=== PATIENT | male | born 1980 | race Caucasian/White ===

== ENCOUNTER 2020-04-16 01:14 | Emergency (ER) | payer SELFPAY ==
[2020-04-16 01:15] VITALS: BP 121/83; PULSE 86; RESP 20; TEMP 36.5; O2SAT 99
--- NOTE | 2020-04-16 01:59 | ED.GENADULT ---
HPI - General Adult General Chief complaint: Unspecified Stated complaint: toothache Time Seen by Provider: 04/16/20 01:42 History of Present Illness HPI narrative: Patient is a 40-year-old male who presents the ER with dental pain. Left lower jaw. No facial swelling. No difficulty breathing or swallowing. Tried lancing abscess to the base of the tooth on his own without success. Has not been on antibiotics. Does not have a dentist. Related Data Allergies Allergy/AdvReac Type Severity Reaction Status Date / Time No Known Allergies Allergy Mild Verified 04/16/20 01:44 Review of Systems Constitutional: Constitutional: Denies chills and Denies fever(s) ENT: Denies sore throat Comments: Dental pain PMFSH Past Medical History Medical History (Updated 04/16/20 @ 02:07 by Kameron Jerome MD) Healthy adult Surgical History Surgical History (Updated 04/16/20 @ 02:02 by Kameron Jerome MD) No history of previous surgery Social History Social History (Updated 04/16/20 @ 02:02 by Kameron Jerome MD) Tobacco type: cigarettes Gender identity (if verbalized by the patient): Male Exam Narrative: Exam Narrative: GENERAL: Well-appearing, well-nourished, and in no acute distress. HEAD: Normocephalic, atraumatic. ENT: Mucous membranes moist. Abscess at base of tooth #19. No facial swelling. NEURO: Alert and oriented x3. PSYCH: Normal mood and affect. Course Course Emergency Course: Abscess drained. Discharge home. First dose antibiotics here. Vital Signs Vital signs: Vital Signs Temperature 97.7 F 04/16/20 01:15 Pulse Rate 86 04/16/20 01:15 Respiratory Rate 04/16/20 01:15 Blood Pressure 121/83 04/16/20 01:15 Pulse Oximetry 99 04/16/20 01:15 Temperature 97.7 F 04/16/20 01:15 Pulse Rate 86 04/16/20 01:15 Respiratory Rate 04/16/20 01:15 Blood Pressure 121/83 04/16/20 01:15 Pulse Oximetry 99 04/16/20 01:15 Procedures Abscess I/D oral: Date of Incision: 04/16/20 Time of Incision: 01:59 Local Anesthetic: none (cetacaine) Technique: needle aspiration Irrigation: No Packing used?: none I&D Results: Pus Medical Decision Making Vital Signs Vital Signs: Vital Signs Temperature 97.7 F 04/16/20 01:15 Pulse Rate 86 04/16/20 01:15 Respiratory Rate 04/16/20 01:15 Blood Pressure 121/83 04/16/20 01:15 Pulse Oximetry 99 04/16/20 01:15 Temperature 97.7 F 04/16/20 01:15 Pulse Rate 86 04/16/20 01:15 Respiratory Rate 04/16/20 01:15 Blood Pressure 121/83 04/16/20 01:15 Pulse Oximetry 99 04/16/20 01:15 Discharge Plan Discharge Clinical Impression: Abscess, dental Patient Disposition: Home, Self-Care Condition: Stable Instructions: Dental Abscess (ED) Additional Instructions: Return to the ER if you have fever over 100.4 ?F, you cannot keep down food or water, you have chest pain or shortness of breath, you have additional concerns. Prescriptions: New amoxicillin-pot clavulanate [Augmentin] 875-125 mg tablet 1 tablet PO Q12H Qty: 20 RF: 0 hydrocodone-acetaminophen 5-325 mg tablet 1 tablet PO Q6H PRN (Reason: pain) Qty: 10 RF: 0 Follow-up/Referrals: Cody Enamorado DMD [Physician] - Cal Bowden DMD [Physician] - Marcin Jorgensen DMD [Physician] -
[2020-04-16] MEDS: AMOXICILLIN/CLAVULANATE K 875-125 MG TAB 1 TABLET PO (02:18)
[2020-04-16 02:55] VITALS: BP 130/74; PULSE 77; RESP 17; O2SAT 92
== END 2020-04-16 02:55 | disposition home or self-care (01) ==
PROVIDERS: Emergency Provider Emergency Medicine
DX: K04.7 Periapical abscess without sinus (principal)
CPT/HCPCS: 41800; 99283; A9270

== ENCOUNTER 2025-01-04 10:42 | Emergency (ER) | payer SELFPAY ==
--- OUTSIDE RECORDS SUMMARY | 2025-01-04 11:17 | XMS_ITS | Data Portability ---
Author Organization [place] - [facility] [place] [facility], Main Office Address [address] [place] [address] Assessment Encounter Date Assessment Date Assessment LastModified by Organization Details LastModified Time 08/24/2024 08/24/2024 This note is dictated and transcribed by [employer]. Supervisor Contingents variances may occur. Despite proofreading, typographical errors may occur. Occasional wrong-word or 'froao-o-egcd' substitutions may have occurred due to the inherent limitations of voice recording. Read the chart carefully and recognize, using context, where substitutions have occurred. Not available 08/24/2024 14:38:41 09/07/2024 09/07/2024 This note is dictated and transcribed by [employer]. Supervisor Contingents variances may occur. Despite proofreading, typographical errors may occur. Occasional wrong-word or 'qmtfv-y-xlhn' substitutions may have occurred due to the inherent limitations of voice recording. Read the chart carefully and recognize, using context, where substitutions have occurred. Not available 09/07/2024 13:48:38 09/28/2024 09/28/2024 This note is dictated and transcribed by [employer]. Supervisor Contingents variances may occur. Despite proofreading, typographical errors may occur. Occasional wrong-word or 'oenrp-z-pvxz' substitutions may have occurred due to the inherent limitations of voice recording. Read the chart carefully and recognize, using context, where substitutions have occurred. Not available 09/28/2024 13:00:30 11/01/2024 11/01/2024 This note is dictated and transcribed by [employer]. Supervisor Contingents variances may occur. Despite proofreading, typographical errors may occur. Occasional wrong-word or 'tdces-d-xmzd' substitutions may have occurred due to the inherent limitations of voice recording. Read the chart carefully and recognize, using context, where substitutions have occurred. Not available 11/01/2024 13:06:00 Plan of Treatment Reminders Order Date Submit Date Provider Last Modified By Organization Details Last Modified Time Details Appointments Establish ed Patient 15 2024 02:00P Yeni Valles DPM Not available Not available Not available Any 15 2024 09:15A M Ines Whelan INDUCTION MACHINE SETTER Not available Not available Not available Lab CBC w/ auto diff [address] (Lab), [address] [place], [address], 09/30/2024 10:44:22 CMP, serum or plasma [address] (Lab), [address] [place], [address], 09/30/2024 10:44:22 lipid panel, serum 2023 [facility] (Lab), [address] [place], [address], 10/07/2024 07:36:37 TSH + free T4, serum [address] (Lab), [address] [place], [address], 09/30/2024 10:44:23 HbA1c (hemoglob in A1c), blood 2023 [facility] (Lab), [address] [place], [address], 10/07/2024 07:36:37 hepatitis C virus Ab, serum 2023 [facility] (Lab), [address] [place], [address], 10/07/2024 07:36:37 Referral None recorded. Procedures None recorded. Surgeries None recorded. Imaging XR, foot, 3 or more view 2023 024 [email or web address] [facility] [place], [address], [address], [place], [address], 08/24/2024 14:43:52 XR, foot, 3 or more view 2023 024 [email or web address] [facility] [place], [address], [address], [place], [address], 09/07/2024 13:49:53 XR, foot, 3 or more view 2023 024 [email or web address] [place], [address], [address], [place], [address], 09/28/2024 13:03:56 XR, foot, 3 or more view 2023 024 [email or web address] [facility] [place], [facility] [facility] [address], [place], [address], 11/01/2024 13:06:38 Medication Orders None recorded. Patient TargetsNo targets recorded. Patient Instructions Encounter Date Encounter Id Patient Instructions Last Modified By Organization Details Last Modified Time 09/30/2024 [id number] Follow up in 4 months Obtain labs Tests: Referral: Recommend: Tetanus vaccine Not available 09/30/2024 10:39:33 Reason for Referral None Reported. Results Created Date Observation Date Name Description Value Unit Range Abnormal Flag Note LastModifiedBy Organization Detail LastModifiedTime 08/24/20 XR, foot, 3 or more view No observ ation record ed. [email or web address] [facility] [place] [address], [address], [place], [address], 08/24/2024 14:43:50 09/07/20 24 XR, foot, 3 or more view No observ ation record ed. [email or web address] [facility] [place] [address] [facility], [address], [place], [address], 09/07/2024 13:49:52 09/15/20 CT, abdom en + pelvi s, w/o contr ast No observ ation record ed. [email or web address] Not Available 2023 15:40:25 09/28/20 24 XR, foot, 3 or more view No observ ation record ed. [email or web address] [facility] [place] [address] [facility], [address], [place], [address], 09/28/2024 13:03:56 11/01/20 XR, foot, 3 or more view No observ ation record ed. [email or web address] [facility] [place] [address], [place], [address], 11/01/2024 13:06:36 Result Notes None recorded. Problems Name Problem SNOMED Code Status Onset Date Resolution Date Notes Provider Name and Address Organization Details Recorded Time Pain in right foot 6027452471050 07 Active 2023 Umang Valles DPM [address], [address], [place], [address], [employer] 4 15:11:21 Closed fracture of metatarsal bone 07719313 Active 2023 Ines Whelan APRN [address], [address], [place], [address], [employer] 4 16:48:03 Postoperati ve care Active 2023 Umang Valles DPM [address], [address], [place], [address], [employer] 4 14:39:53 Diabetes mellitus 31952620 Active 2023 Inesanila YoungBOAZ renee [address], [address], [place], [address], [employer] 4 10:34:02 Benign prostatic hyperplasia 784386801 Active 2023 Ines Cleopatra INDUCTION MACHINE SETTER [address], [address], [place], [address], [employer] 4 10:35:13 Mixed hyperlipide magdy 589916335 Active 2023 Ines BOAZ Whelan [address], [address], [place], [address], [employer] 15:38:06 Osteopenia due to disuse 491006392 Active 2023 Umang Valles DPM [address], [address], [place], [address], [employer] 13:07:05 Notes:Some problems listed i n Documents: #[id number], #[id number] could not be added to this patient's chart. Please review these documents and add these problems to the patient's chart manually as needed. Problem Notes None recorded. Procedures Surgical History Date Name Laterality Status Provider Name and Address Organization Details Recorded Time 08/24/20 24 Foot/Ankle Cast completed Umang Valles DPM [address], [address], [place], [address], [employer] 08/24/2024 14:38:31 08/05/20 24 Foot/Ankle Cast completed Umang Valles DPM [address], [address], [place], [address], [employer] 08/25/2024 13:22:04 Foot Surgery completed Tamiko Santos MA [employer] 09/30/2024 10:27:17 ultrasonic fragmentation of urinary stone through percutaneous nephrostomy completed Tamiko Santos MA [employer] [facility] 09/30/2024 10:27:31 Imaging Results Imaging Date Name Status LastModified by [facility] Details LastModified Time 08/24/2024 XR, foot, 3 or more view completed [email or web address] [place] [address] [facility] [place] [address], [address], [place], [address], 08/24/2024 14:43:50 09/07/2024 XR, foot, 3 or more view completed [email or web address] [facility] [place] [address], [address], [place], [address], 09/07/2024 13:49:52 09/15/2024 CT, abdomen + pelvis, w/o contrast completed Information not available 09/15/2024 15:40:25 09/28/2024 XR, foot, 3 or more view completed [email or web address] [facility] [place] [address] [facility], [address], [place], [address], 09/28/2024 13:03:56 11/01/2024 XR, foot, 3 or more view completed [address] [facility] [place] [address], [place], [address], 11/01/2024 13:06:36 Procedure Notes None recorded. Medical Equipment None Reported. Allergies No known drug allergies Medications Name Sig Start Date Stop Date Status Note LastModified by Organization Details LastModified Time metformin 500 mg tablet TAKE 1 TABLET BY MOUTH TWICE DAILY 11/01 completed Not Available Not Available Not Available atorvastatin 10 mg tablet Take 1 tablet every day by oral route as directed . 11/01 completed Not Available Not Available Not Available hydrocodone 5 mg-acetamino phen 325 mg tablet 09/30 completed Not Available Not Available Not Available Pyridium 200 mg tablet Take 1 tablet 4 times a day by oral route. 08/06 completed Not Available Not Available Not Available hydrocodone 10 mg-acetamino phen 325 mg tablet TK 1 T PO Q 6 H PRN 08/05 completed Not Available Not Available Not Available tramadol 50 mg tablet Take 1 tablet every 6 hours by oral route. 08/05 completed Not Available Not Available Not Available oxycodone-ac etaminophen 5 mg-325 mg tablet TAKE 1 TABLET BY MOUTH EVERY 6 HOURS NEEDED 09/30 completed Not Available Not Available Not Available hydrocodone 7.5 mg-acetamino phen 325 mg tablet TK 1 T PO Q 6 TO 8 H PRN P 08/05 completed Not Available Not Available Not Available Proscar 5 mg tablet Take 1 tablet every day by oral route. 11/01 completed Not Available Not Available Not Available Levaquin 500 mg tablet Take 1 tablet every 24 hours by oral route. 08/05 completed Not Available Not Available Not Available cefdinir 300 mg capsule TAKE 1 CAPSULE BY MOUTH TWICE DAILY FOR 5 DAYS 09/30 completed Not Available Not Available Not Available potassium citrate ER 15 mEq (1,620 mg) tablet,exten ded release Take 1 tablet twice a day by oral route. 08/06 completed Not Available Not Available Not Available Vitals Date Recorded Body height Body mass index (BMI) Body weight Heart rate Respiratory rate Oxygen saturation Oxygen saturation in Arterial blood by Pulse oximetry Systolic blood pressure Diastolic blood pressure Provider Name and Address Organization Details Last Updated DateTime 4 160.02 cm 31.9 kg/m2 73684.6 3 g 83 /min 14 /min 99 % 99 % 146 mm[Hg] 101 mm[Hg] Anel Gil [facility] [employer] [facility] 4 11:35:00 Date Recorded Body height Body mass index (BMI) Body weight Heart rate Respiratory rate Oxygen saturation Oxygen saturation in Arterial blood by Pulse oximetry Systolic blood pressure Diastolic blood pressure Provider Name and Address Organization Details Last Updated DateTime 4 160.02 cm 31.9 kg/m2 26524.6 3 g 84 /min 14 /min 98 % 98 % 171 mm[Hg] 121 mm[Hg] Anel Gil [facility] [employer] [facility] 4 11:17:05 Date Recorded Body height Body mass index (BMI) Body weight Heart rate Respiratory rate Oxygen saturation Oxygen saturation in Arterial blood by Pulse oximetry Systolic blood pressure Diastolic blood pressure Provider Name and Address Organization Details Last Updated DateTime 4 160.02 cm 31.9 kg/m2 95271.6 3 g 96 /min 14 /min 99 % 99 % 157 mm[Hg] 111 mm[Hg] Anel Gil [facility] [employer] [facility] 4 12:28:35 Date Recorded Body height Body mass index (BMI) Body weight Body temperature Oxygen saturation Oxygen saturation in Arterial blood by Pulse oximetry Heart rate Pain severity - 0-10 verbal numeric rating [Score] - Reported Systolic blood pressure Diastolic blood pressure Provider Name and Address Organization Details Last Updated DateTime 4 160.02 cm 32.9 kg/m2 48154.1 8 g 96.5 [degF] 95 % 95 % 82 /min 6 142 mm[Hg] 102 mm[Hg] Tamiko Santos MA [facility] [employer] [facility] 4 10:22:35 Date Recorded Body height Body mass index (BMI) Body weight Heart rate Respiratory rate Oxygen saturation Oxygen saturation in Arterial blood by Pulse oximetry Systolic blood pressure Diastolic blood pressure Provider Name and Address Organization Details Last Updated DateTime 4 160.02 cm 32.9 kg/m2 80169.1 8 g 91 /min 14 /min 99 % 99 % 186 mm[Hg] 115 mm[Hg] Anel Gil [facility] [employer] [facility] 4 10:58:45 Social History Question Answer Notes LastModified by Organization Details LastModified Time Tobacco Smoking Status Former Smoker Tamiko Santos MA [facility] [employer] [facility] 09/30/2024 10:25:49 What Is Your Level Of Alcohol Consumption? Occasional Information not available 09/30/2024 What Is Your Level Of Caffeine Consumption? None Recently Quit All Caffine Information not available 09/30/2024 In The 14 Days Before Symptom Onset, Have You Had Close Contact With A Laboratory-confi rmed COVID-19 While That Case Was Ill? No Information not available 09/30/2024 In The 14 Days Before Symptom Onset, Have You Had Close Contact With A Person Who Is Under Investigation For COVID-19 While That Person Was Ill? No Information not available 09/30/2024 Are You Currently Employed? Yes Information not available 09/30/2024 What Type Of Diet Are You Following? REGULAR Information not available 09/30/2024 Which Illicit Or Recreational Drugs Have You Used? 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 No Information not available 09/30/2024 Do You Use Insect Repellent Routinely? No Information not available 09/30/2024 Where Do You Live? SingleLevelHouse Information not available 09/30/2024 What Was The Date Of Your Most Recent Tobacco Screening? 09/30/2024 Information not available 09/30/2024 How Many Children Do You Have? 2 Information not available 09/30/2024 Do You Have Any Pets? Yes Information not available 09/30/2024 What Is Your Relationship Status? Single Information not available 09/30/2024 Do You Use Your Seat Belt Or Car Seat Routinely? Yes Information not available 09/30/2024 Do You Have Smoke And Carbon Monoxide Detectors In Your Home? Yes Information not available 09/30/2024 At What Age Did You Start Smoking Tobacco? 17 Information not available 09/30/2024 Are You Passively Exposed To Smoke? No Information not available 09/30/2024 Are There Any Smokers In Your House? No Information not available 09/30/2024 Do You Feel Stressed (tense, Restless, Nervous, Or Anxious, Or Unable To Sleep At Night)? [id number] Information not available 09/30/2024 Do You Use Any Illicit Or Recreational Drugs? Yes Information not available 09/30/2024 Do You Use Sunscreen Routinely? No Information not available 09/30/2024 Have You Recently Traveled Abroad? No Information not available 09/30/2024 Have You Used IV Drugs? No Information not available 09/30/2024 Do You Have Any Dietary Restrictions? No Information not available 09/30/2024 Do You Or Have You Ever Used Any Other Forms Of Tobacco Or Nicotine? No Information not available 09/30/2024 Sex: Unknown Functional Status Question Answer Note LastModified by Organization D etails LastModified Time What is your exercise level? Moderate Information not available 09/30/2024 Mental Status None recorded. Family History Relationship Description Onset Age of this Age Resolved Age Notes LastModified by Organization Details LastModified Time Father No current problems or disability [email or web address] Not available 03/2024 14:46:31 Mother No current problems or disability [email or web address] Not available 03/2024 14:46:31 Medical History No medical history recorded. Past Encounters Encounter ID Performer Location Encounter Start Date Encounter Closed Date Diagnosis/Indication Diagnosis SNOMED-CT Code Diagnosis ICD10 Code Diagnosis Note [id number] [facility] [address], [place] [address] 7 08/05/2024 14:41:42 08/30/2024 11:51:20 Pain in right foot 7258009554 24789 M79.671 secondary to below Closed fra cture of metatarsal bone 65736156 S92.311A S92.321A x-rays foot and ankle reviewedpo sterior splint reappliedc ontinue nonweightb earingrice therapy dailymonit or for signs of infection and DVT present seek medical attention immediatel yObtain medical clearance for open reduction internal fixation right foot [id number] Umang Vallse DPM [facility] [address], [address] [address] 08/24/2024 11:28:22 08/30/2024 12:08:14 Closed fracture of metatarsal bone 23403000 S92.301D S92.321D x-rays foot reviewedpo sterior splint reappliedc ontinue nonweightb earing with crutches right footrice therapy dailyconti nue 1x 325 mg aspirin dailyfollo w-up 2 weeks repeat x-rays Postoperative care 17962 9007 Z48.89 new posterior splint reapplied today [id number] Umang Valles DPM [facility] [address], [facility] [address] [place] [address] 09/07/2024 10:52:40 09/27/2024 11:01:57 Postoperative care 977682706 Z48.89 sutures removedmay utilize Cam boot nonweightb earingmoni tor for signs of infectionn o soaking, may showerfoll ow-up in 3 weeks for x-rays [id number] Ines Whelan APRN [facility] Internal Med [facility] [address] [facility], [facility] [address] [place] [address] 09/30/2024 10:05:31 09/30/2024 10:44:36 Hepatitis C screening 372564239 Z11.59 Diabetes m ellitus screening 393385542 Z13.1 Hyperlipid emia screening 287691067 Z13.220 Screening for disorder 196299805 Z13.9 Thyroid di sorder screening 161747206 Z13.29 [id number] Umang Valles DPM [facility] Pod[facility]ry [address], [facility] [address] [place] [address] 09/28/2024 12:15:28 09/30/2024 11:09:20 Closed fracture of metatarsal bone 31342480 S92.301D x-rays foot reviewedma y weightbear in Cam bootrice therapy dailyfollo w-up 4 weeks repeat x-rays [id number] Umang Valles DPM [facility] [place] [address] [place] [address] 11/01/2024 10:42:38 11/25/2024 16:28:46 Postoperative care 259151087 Z48.89 returned to normal shoe gearmay return to workno strenuous activities follow-up in 2 months Osteopenia due to disuse 717338062 M85.80 recommend over-the-c ounter vitamin-D and calcium supplement ation dailyfollo w-up 2 months repeat x-rays Health Concerns Section Related Observation LastModified by Organization Detai ls LastModified Time None Recorded Concern Status LastModified by Organization Details LastModified Time None Recorded Advance Directives Directive None Recorded Payers Encounter Date Sequence Insurance Name Policy Number Policy El Covered Member ID El Member ID Guarantor Name 08/24/2024 1 *SELF PAY* Sonia Rivera 09/07/2024 1 *SELF PAY* Sonia Rivera 09/28/2024 1 [place] [facility] Deion Rivera [id number] Deion Rivera 09/30/2024 1 [place] [facility] Deion Rivera [id number] Deion Rivera 11/01/2024 1 [place] [facility] Deion Rivera [id number] Deion Rivera Notes Date Note Type Note Provider Name and Address Organization Details Recorded Time 08/24/2024 text/html . Patient is a 44-year-old male who returns the office for follow-up on right foot fracture open reduction internal fixation to which he has hardware. Patient is doing well he had repeat x-rays today which shows good reduction of the fractures. Patient has been in a posterior splint he denies any calf pain, trouble breathing, chest pain. Patient denies any other complaints. Umang Valles DPM [address], [place], [address], [employer] 08/24/2024 14:44:03 09/07/2024 text/html . Patient is a 44-year-old male who returns the office for suture removal secondary to operative open reduction internal fixation of right foot 1st and 2nd metatarsal fractures. Patient states he is doing well he denies any calf pain. Patient denies any signs of infection. Patient denies any other complaints. Umang Valles DPM [address], [place], [address], [employer] 09/07/2024 13:50:10 09/28/2024 text/html Surgery 9-13Patient is a 44-year-old male who returns the office for follow-up on 1st metatarsal and 2nd metatarsal open reduction internal fixation overall he is doing very well he has well-healed incisions he states he still has some numbness in the dorsal foot. Patient states he is not having any pain with walking. Patient had repeat x-rays they were reviewed today he has good healing at the fracture areas. Patient is hardware is intact and stable. Patient denies any other complaints. Umang Valles DPM [address], [place], [address], [employer] 09/28/2024 13:04:50 09/30/2024 text/html Deion presents today to establish care as a new patient. Patient was recently in the hospital for foot surgery. He was also in the hospital for kidney stone, which has passed. He states that he has not had a provider for a while. Ines Whelan APRN [address], [address], [place], [address], [employer] 09/30/2024 10:41:27 11/01/2024 text/html . Patient is a 44-year-old male who returns the office for follow-up on open reduction internal fixation 1st and 2nd metatarsal fractures he had repeat x-rays shows healing of the fractures with stable hardware. Patient states he is no longer having any pain. Patient presents in normal shoe gear today. Patient states he is ready to return to work. I did review that he has a lack of calcium to his bones I did recommend he start taking daily vitamin D and calcium supplements to increase his bone density. Patient denies any other complaints. Umang Valles DPM [address], [address], [place], [address], [employer] 11/16/2024 12:30:08
--- OUTSIDE RECORDS SUMMARY | 2025-01-04 11:17 | XMS_ITS | CONTINUITY OF CARE DOCUMENT ---
Author Name zoë camp Address Unknown Organization [facility] Address [address] [place] [address] Phone [phone] Care Team Providers Care Commercial Hvac Service Technician Name Role Phone Silas MORAN, Darren Unavailable [phone] Darren Rosen MD Unavailable [phone] INSURANCE PROVIDERS Payer name Policy type / Coverage type [place] [employer] party ID [id number] PAY [id number]
--- NOTE | 2025-01-04 11:25 | PC.NURSE ---
Called to place in room, not in waiting room
--- OUTSIDE RECORDS SUMMARY | 2025-01-04 12:07 | XMS_ITS | CONTINUITY OF CARE DOCUMENT ---
Author Name zoë camp Address Unknown Organization [facility] Address [address] [place] [address] Phone [phone] Care Team Providers Care Benefits Specialist Recruiter Name Role Phone Silas MORAN, Darren Unavailable [phone] Darren Rosen MD Unavailable [phone] INSURANCE PROVIDERS Payer name Policy type / Coverage type [place] [employer] party ID [id number] PAY [id number]
== END 2025-01-04 11:25 | disposition left against medical advice (07) ==
DX: Z53.21 Procedure and treatment not carried out due to patient leaving prior to being seen by health care provider (principal)
CPT/HCPCS: 99199

== ENCOUNTER 2025-09-23 10:46 | Emergency (ER) | payer OTHER, SELFPAY ==
--- NOTE | ~2025-09-23 | CT_ITS ---
EXAMINATION: CT abdomen pelvis wo con DATE: 09/23/2025 11:50 INDICATION: Flank pain TECHNIQUE: Computed tomography (CT) of the abdomen and pelvis was performed without intravenous contrast. The dose-length product was 654.24 mGy-cm. Automated exposure control and iterative reconstruction technique were employed. COMPARISON: None. FINDINGS: Lung bases unremarkable. Heart size normal. Fatty infiltration of the liver. Gallbladder not identified, possibly surgically absent. The spleen, pancreas, adrenal glands and kidneys are unremarkable. No hydronephrosis. No ureteral stones. No renal stones. Nonobstructive bowel gas pattern. Normal appendix. No abnormal pelvic masses or fluid collections. No significant vascular abnormality. No lymphadenopathy. No free air or free fluid. No acute osseous abnormality. IMPRESSION: 1. Fatty infiltration of the liver. Reviewed, dictated and finalized at location O.
[2025-09-23 10:50] VITALS: BP 156/108; PULSE 98; RESP 18; TEMP 36.4; O2SAT 97
--- OUTSIDE RECORDS SUMMARY | 2025-09-23 11:04 | XMS_ITS | Clinical Summary ---
Author Organization [facility] Address [address] [place] [address] Phone Care Team Providers Care Single End Sewer Name Role Phone Ankur Cararsco Primary Care Provider [phone] Johan Guaman MD Unavailable Allergies No known active allergies Medications metFORMIN (GLUCOPHAGE) 500 MG Tablet 1 tablet by oral route. 01/07/2025 Active amLODIPine (NORVASC) 10 MG Tablet Take 10 mg by mouth daily. 07/31/2025 Active fenofibrate 160 MG Tablet Take 160 mg by mouth daily. 07/01/2025 Active glimepiride (AMARYL) 2 MG Tablet Take 2 mg by mouth 2 times daily. 06/02/2025 Active irbesartan (AVAPRO) 300 MG Tablet Take 300 mg by mouth daily. 06/02/2025 Active Lancets (OneTouch Delica Plus [id number]) [facility] CHECK BLOOD GLUCOSE TWICE DAILY NEEDED 06/01/2025 Active meloxicam (MOBIC) 15 MG Tablet Take 1 Tablet by mouth daily. Active ondansetron (ZOFRAN) 4 MG Tablet Take 4 mg by mouth every 8 hours. 07/05/2025 Active rosuvastatin (CRESTOR) 20 MG Tablet Take 20 mg by mouth daily. 06/02/2025 Active tamsulosin (FLOMAX) 0.4 MG Capsule Take 1 Capsule by mouth daily. 07/04/2025 Active Encounters Date Type Department Care Team Description 09/10/2025 10:24 AM CDT - 09/10/2025 11:59 PM CDT Hospital Encounter [facility] Ultrasound [address] [place] [address] Johan Guaman MD Discharge Disposition: Discharged to home or Selfcare 09/10/2025 Travel 08/19/2025 1:36 PM CDT - 08/19/2025 11:59 PM CDT Hospital Encounter [facility] Radiology Resources [address] [place] [address] Provider, Not On File Discharge Disposition: Discharged to home or Selfcare 08/17/2025 8:00 AM CDT Office Visit [facility] [address] [place] [address] Johan Guaman MD Kidney stone (Primary Dx) Discharge Disposition: Discharged to home or Selfcare 08/17/2025 Travel from Last 3 Months Immunizations Immunization Administration Dates Next Due Influenza,Split Virus,Trivalent,Injectable,PF (Deferred: Other) Social History Tobacco Use Types Packs/Day Years Used Date Smoking Tobacco: Former Cigarettes Tobacco Cessation:Counseling Given: Not Answered Sex and Gender Information Value Date Recorded Sex Assigned at Not on file Legal Sex Male 7:26 PM CDT Gender Identity Not on file Sexual Orientation Not on file Last Filed Vital Signs Vital Sign Reading Time Taken Comments Blood Pressure 149/97 08/17/2025 8:21 AM CDT Pulse 77 08/17/2025 8:21 AM CDT Temperature - - Respiratory Rate 16 08/17/2025 8:21 AM CDT Oxygen Saturation 96% 08/17/2025 8:21 AM CDT Inhaled Oxygen Concentration - - Weight 86.2 kg (190 lb) 08/17/2025 8:21 AM CDT Height 160 cm (5' 3) 08/17/2025 8:21 AM CDT Body Mass Index 33.66 08/17/2025 8:21 AM CDT Plan of Treatment Health Maintenance Due Date Last Done Comments Hepatitis C Virus (HCV) Screening 1980 TdaP Immunization 1980 Hepatitis B Immunization (1 of 3 - 19+ 3-dose series) 02/28/1999 Human Papillomavirus (HPV) Immunization (1 - 3-dose SCDM series) 02/28/2007 Cologuard 02/28/2025 Colonoscopy 02/28/2025 Colorectal Cancer Screening 02/28/2025 Immunochemical Fecal Occult Blood 02/28/2025 Influenza Immunization (#1) 2025 SARS-COV-2 Immunization ( season) 2025 Respiratory Syncytial Virus (RSV) Immunization (Adult) (1 - 1-dose 75+ series) 02/28/2055 Meningococcal Immunization (ACWY) Aged Out No longer eligible based on patient's age to complete this topic Pneumococcal Immunization Combined Aged Out No longer eligible based on patient's age to complete this topic Rotavirus Immunization Aged Out No lo nger eligible based on patient's age to complete this topic Procedures Procedure Name Priority Date/Time Associated Diagnosis Comments US RENAL COMPLETE Routine 09/10/2025 10: 45 AM CDT [address] stone CT REFERENCE IMAGES FOR IMAGE IMPORT Routine 08/19/2025 1:36 PM CDT MAGNESIUM (MG) Routine 08/17/2025 9:04 AM CDT Kidney stone URIC ACID (BLOOD ASSAY) Routine 08/17/2025 9:04 AM CDT Kidney stone CMP (COMPREHENSIVE METABOLIC PANEL) Routine 08/17/2025 9:04 AM CDT Kidney stone POCT UA AUTOMATED W/O MICRO Routine 08/17/2025 8:20 AM CDT Kidney stone CT - ABDOMEN/PELVIS 07/04/2025 1 2:00 AM CDT from Last 3 Months Results * US RENAL COMPLETE (09/10/2025 10:45 AM CDT) Anatomical Region Laterality Modality , Abdomen N/A Ultrasound 09/10/2025 10:4 5 AM CDT Impressions 09/10/2025 12:00 PM CDT IMPRESSION: Normal sonographic appearance of the kidneys and urinary bladder. No hydronephrosis. Narrative 09/10/2025 12:00 PM CDT DICTATING PHYSICIAN: Alex Zhang D.O. EXAM: US RENAL COMPLETE 09/10/2025 10:45 AM HISTORY: Follow-up of hydronephrosis from obstructing proximal left ureteral stone seen on CT on 07/04/2025. Currently asymptomatic. COMPARISON: None. FINDINGS: RIGHT KIDNEY Length: 12.7 cm. Parenchyma: Normal echogenicity and cortical thickness. No cystic or solid lesions. Collecting System: No hydronephrosis. Perinephric space: No fluid collections. LEFT KIDNEY Length: 12.3 cm. Parenchyma: Normal echogenicity and cortical thickness. No cystic or solid lesions. Collecting System: No hydronephrosis. Perinephric space: No fluid collections. URINARY BLADDER No abnormality. Pre-void volume: 265 mL Post-void volume: 31 mL. (Post void volume of less than 50 mL is considered insignificant.) Procedure Note Alex Zhang, DO - 09/10/2025 DICTATING PHYSICIAN: Alex Zhang D.O. EXAM: US RENAL COMPLETE 09/10/2025 10:45 AM HISTORY: Follow-up of hydronephrosis from obstructing proximal leftureteral stone seen on CT on 07/04/2025. Currently asymptomatic. COMPARISON: None. FINDINGS: RIGHT KIDNEY Length: 12.7 cm. Parenchyma: Normal echogenicity and cortical thickness. No cystic orsolid lesions. Collecting System: No hydronephrosis. Perinephric space: No fluid collections. LEFT KIDNEY Length: 12.3 cm. Parenchyma: Normal echogenicity and cortical thickness. No cystic orsolid lesions. Collecting System: No hydronephrosis. Perinephric space: No fluid collections. URINARY BLADDER No abnormality. Pre-void volume: 265 mL Post-void volume: 31 mL. (Post void volume of less than 50 mL isconsidered insignificant.) IMPRESSION: Normal sonographic appearance of the kidneys and urinary bladder. Nohydronephrosis. us Johan BURKETT US ORDERABLES Final Result * CT REFERENCE IMAGES FOR IMAGE IMPORT (08/19/2025 1:36 PM CDT) us Not On File Provider IMG CT ORDERABLES Final Res ult * URIC ACID (BLOOD ASSAY) (08/17/2025 9:04 AM CDT) Pathologist [facility] URIC ACID 5.6 3.7 - 7.7 mg/dL 08/17/2025 10:30 AM CDT [facility] Blood Venipuncture / Unknown 08/17/2025 9:04 AM CDT 08/17/2025 9:59 AM CDT us Johan Guaman MD CHEMISTRY ORDERABLES Final Resul t Performing Organization Address City/[facility]/ZIP Co de Phone Number [facility] [address] [place] [address] * MAGNESIUM (MG) (08/17/2025 9:04 AM CDT) Pathologist [facility] MAGNESIUM 1.9 1.6 - 2.6 mg/dL 08/17/2025 10:30 AM CDT [facility] Blood Venipuncture / Unknown 08/17/2025 9:04 AM CDT 08/17/2025 9:59 AM CDT us Johan Guaman MD CHEMISTRY ORDERABLES Final Resul t Performing Organization Address City/[facility]/ZIP Co de Phone Number [facility] [address] [place] [address] * (ABNORMAL) CMP (COMPREHENSIVE METABOLIC PANEL) (08/17/2025 9:04 AM CDT) Pathologist [facility] SODIUM 135(L) 136 - 145 mmol/L 08/17/2025 10:30 AM CDT [facility] POTASSIUM 4.3 3.5 - 5.1 mmol/L 08/17/2025 10:30 AM CDT [facility] CHLORIDE 104 98 - 107 mmol/L 08/17/2025 10:30 AM CDT [facility] CO2, VENOUS 22 22 - 30 mmol/L 08/17/2025 10:30 AM T [facility] ANION GAP 13.3 <18.0 mmol/L 08/17/2025 10:30 AM T [facility] GLUCOSE 153(H) 70 - 99 mg/dL 08/17/2025 10:30 AM CDT [facility] BUN 11 9 - 21 mg/dL 08/17/2025 10:30 AM T [facility] CREATININE, BLOOD 0.64(L) 0.70 - 1.30 mg/dL 08/17/2025 10:30 AM T [facility] BUN/CREATININE RATIO 17 12 - 20 ratio 08/17/2025 10:30 AM [facility] TOTAL PROTEIN 7.6 6.0 - 8.0 g/dL 08/17/2025 10:30 AM T [facility] ALBUMIN 4.2 3.5 - 5.0 g/dL 08/17/2025 10:30 AM [facility] A/G RATIO 1.2 1.0 - 2.2 08/17/2025 10:30 AM T [facility] CALCIUM 9.0 8.7 - 10.5 mg/dL 08/17/2025 10:30 AM [facility] T BILI 0.3 0.2 - 1.2 mg/dL 08/17/2025 10:30 AM [facility] SGOT (AST) 34 <43 U/L 08/17/2025 10:30 AM T [facility] SGPT (ALT) 52 <56 U/L 08/17/2025 10:30 AM T [facility] ALKALINE PHOSPHATASE 163(H) 40 - 150 U/L 08/17/2025 10:30 AM [facility] IS THE PATIENT REQUIRED TO BE FASTING? No 08/17/2025 10:30 AM T [facility] GFR, ESTIMATED >60 >=60 08/17/2025 10:30 AM CDT [facility] Comment: Creatinine Clearance is the preferred criteria for selecting drug dose adjustments in renally impaired patients. The GFR is provided as additional pertinent clinical information. GFR is reported in mL/min/1.73 sq m. Calculation based on the 2020 Chronic Kidney Disease Epidemiology Collaboration (CKD-EPI) equation refit without adjustment for race. GFR, EST. >60 >=60 025 10:30 AM CDT [facility] Comment: Creatinine Clearance is the preferred criteria for selecting drug dose adjustments in renally impaired patients. The GFR is provided as additional pertinent clinical information. GFR is reported in mL/min/1.73 sq m. Calculation based on the 2009 Chronic Kidney Disease Epidemiology Collaboration (CKD-EPI). GFR, EST. NONAFRICAN >60 >=60 08/17/2025 10:30 AM CDT [facility] Comment: Creatinine Clearance is the preferred criteria for selecting drug dose adjustments in renally impaired patients. The GFR is provided as additional pertinent clinical information. GFR is reported in mL/min/1.73 sq m. Calculation based on the 2009 Chronic Kidney Disease Epidemiology Collaboration (CKD-EPI). Blood Venipuncture / Unknown 08/17/2025 9:04 AM CDT 08/17/2025 9:59 AM CDT us Johan Guaman MD CHEMISTRY ORDERABLES Final Resul t [facility] [address] [place] [address] * POCT UA AUTOMATED W/O MICRO (08/17/2025 8:20 AM CDT) POC UA SPECIFIC GRAVITY 1.020 URINE PH 5.0 5.0 - 9.0 POC URINE LEUKOCYTES Negative Negative Ortega/uL POC URINE NITRITE Negative Negative POC URINE PROTEIN Negative Negative mg/dL POC URINE GLUCOSE Norm Negative, Norm mg/dL POC URINE KETONE Negative Negative mg/dL POC URINE UROBILINOGEN Norm Norm, 0.2 E.U./dL (mg/dL), 1 E.U./dL (mg/dL) POC URINE BILIRUBIN Negative Negative mg/dL POC URINE BLOOD INSTRUMENT Negative Negative Emiliano/uL POC URINE COLOR Yellow POC URINE CLARITY Clear Urine 08/17/2025 8:20 AM CDT Johan Guaman MD POINT OF CARE TESTING (MANUAL) F inal Result * CT - ABDOMEN/PELVIS (07/04/2025 12:00 AM CDT) 07/04/2025 us Provider Scan IMG CT ORDERABLES Final Result SCAN from Last 3 Months Insurance MEDICAID [place] Care Teams Single End Sewer Relationship Specialty Start Date End Date Ankur Carrasco [address] [place] [address] PCP - General Primary Care 08/11/25 Johan Guaman MD [address] [phone] Consulting Physician Urology 08/17/25
[2025-09-23] MEDS: KETOROLAC 15 MG/ML VIAL (*BKC) IV PUSH (11:41)
--- OUTSIDE RECORDS SUMMARY | 2025-09-23 11:57 | XMS_ITS | Clinical Summary ---
Author Organization [facility] Address [address] [place] [address] Phone Care Team Providers Care Lining Folder Name Role Phone Ankur Carrasco Primary Care Provider [phone] Johan Guaman MD Unavailable Allergies No known [...] daily. 06/02/2025 Active Lancets (OneTouch Delica Plus [id number]) [facility] CHECK BLOOD GLUCOSE TWICE DAILY NEEDED 06/01/2025 [...] 11:59 PM CDT Hospital Encounter [facility] Ultrasound [address] [place] [address] Johan Guaman MD Discharge Disposition: Discharged to home or Selfcare 09/10/2025 Travel 08/19/2025 1:36 PM CDT - 08/19/2025 11:59 PM CDT Hospital Encounter [facility] Radiology Resources [address] [place] [address] Provider, Not On File Discharge Disposition: Discharged to home or Selfcare 08/17/2025 8:00 AM CDT Office Visit [facility] [address] [place] [address] Johan Guaman MD Kidney stone (Primary Dx) [...] (BLOOD ASSAY) (08/17/2025 9:04 AM CDT) Pathologist [facility] URIC ACID 5.6 3.7 - 7.7 mg/dL 08/17/2025 10:30 AM CDT [facility] Blood Venipuncture / Unknown 08/17/2025 9:04 AM CDT 08/17/2025 9:59 AM CDT us Johan Guaman MD CHEMISTRY ORDERABLES Final Resul t Performing Organization Address City/[facility]/ZIP Co de Phone Number [facility] [address] [place] [address] * MAGNESIUM (MG) (08/17/2025 9:04 AM CDT) Pathologist [facility] MAGNESIUM 1.9 1.6 - 2.6 mg/dL 08/17/2025 10:30 AM CDT [facility] Blood Venipuncture / Unknown 08/17/2025 9:04 AM CDT 08/17/2025 9:59 AM CDT us Johan Guaman MD CHEMISTRY ORDERABLES Final Resul t Performing Organization Address City/[facility]/ZIP Co de Phone Number [facility] [address] [place] [address] * (ABNORMAL) CMP (COMPREHENSIVE METABOLIC PANEL) (08/17/2025 9:04 AM CDT) Pathologist [facility] SODIUM 135(L) 136 - 145 mmol/L 08/17/2025 10:30 AM CDT [facility] POTASSIUM 4.3 3.5 - 5.1 mmol/L 08/17/2025 10:30 AM CDT [facility] CHLORIDE 104 98 - 107 mmol/L 08/17/2025 10:30 AM CDT [facility] CO2, VENOUS 22 22 - 30 mmol/L 08/17/2025 10:30 AM T [facility] ANION GAP 13.3 <18.0 mmol/L 08/17/2025 10:30 AM T [facility] GLUCOSE 153(H) 70 - 99 mg/dL 08/17/2025 10:30 AM CDT [facility] BUN 11 9 - 21 mg/dL 08/17/2025 10:30 AM T [facility] CREATININE, BLOOD 0.64(L) 0.70 - 1.30 mg/dL 08/17/2025 10:30 AM T [facility] BUN/CREATININE RATIO 17 12 - 20 ratio 08/17/2025 10:30 AM [facility] TOTAL PROTEIN 7.6 6.0 - 8.0 g/dL 08/17/2025 10:30 AM T [facility] ALBUMIN 4.2 3.5 - 5.0 g/dL 08/17/2025 10:30 AM [facility] A/G RATIO 1.2 1.0 - 2.2 08/17/2025 10:30 AM T [facility] CALCIUM 9.0 8.7 - 10.5 mg/dL 08/17/2025 10:30 AM [facility] T BILI 0.3 0.2 - 1.2 mg/dL 08/17/2025 10:30 AM [facility] SGOT (AST) 34 <43 U/L 08/17/2025 10:30 AM T [facility] SGPT (ALT) 52 <56 U/L 08/17/2025 10:30 AM T [facility] ALKALINE PHOSPHATASE 163(H) 40 - 150 U/L 08/17/2025 10:30 AM [facility] IS THE PATIENT REQUIRED TO BE FASTING? No 08/17/2025 10:30 AM T [facility] GFR, ESTIMATED >60 >=60 08/17/2025 10:30 AM CDT [facility] Comment: Creatinine Clearance is the preferred criteria for selecting drug dose adjustments in renally impaired patients. The GFR is provided as additional pertinent clinical information. GFR is reported in mL/min/1.73 sq m. Calculation based on the 2020 Chronic Kidney Disease Epidemiology Collaboration (CKD-EPI) equation refit without adjustment for race. GFR, EST. >60 >=60 025 10:30 AM CDT [facility] Comment: Creatinine Clearance is the preferred criteria for selecting drug dose adjustments in renally impaired patients. The GFR is provided as additional pertinent clinical information. GFR is reported in mL/min/1.73 sq m. Calculation based on the 2009 Chronic Kidney Disease Epidemiology Collaboration (CKD-EPI). GFR, EST. NONAFRICAN >60 >=60 08/17/2025 10:30 AM CDT [facility] Comment: Creatinine Clearance is the preferred [...] Guaman MD CHEMISTRY ORDERABLES Final Resul t [facility] [address] [place] [address] * POCT UA AUTOMATED W/O MICRO (08/17/2025 [...] 3 Months Insurance MEDICAID [place] Care Teams Lining Folder Relationship Specialty Start Date End Date Ankur Carrasco [address] [place] [address] PCP - General Primary Care 08/11/25 Johan Guaman MD [address] [phone] Consulting Physician Urology 08/17/25
[2025-09-23] MEDS: SODIUM CHLORIDE 0.9% IV 1,000 ML 999 ML IV CONT ×2 (12:00→14:21)
[2025-09-23 12:06] LABS: Hematocrit 47.3 % (42.0-52.0); Hemoglobin 16.2 g/dL (14.0-18.0); Immature Granulocyte Percent A 0.8 % (0-0.5); Lymphocytes Absolute Auto 2.92 K/mm3 (0.9-3.2); Mean Corpuscular HGB Conc 34.2 g/dl (32-36); Mean Corpuscular Hemoglobin 29.7 pg (26-34); Mean Corpuscular Volume 86.8 fl (80-100); Nucleated Red Blood Cells Absolute Auto 0.000 K/mm3 (0.0-0.012); Nucleated Red Blood Cells Perc 0.0 % (0.0-0.2); Platelet Count Result 269 k/mm3 (150-375); Red Blood Count 5.45 M/mm3 (4.6-6.20); White Blood Count 17.5 K/mm3 (4.5-10.0)
[2025-09-23 12:59] LABS: Alanine Aminotransferase 81 U/L (6-50); Albumin Level 4.1 g/dL (3.5-5.1); Alkaline Phosphatase 214 U/L (38-126); Anion Gap 9 mmol/L (4-12); Aspartate Amino Transferase 50 U/L (17-59); Bilirubin,Total 0.7 mg/dL (0.2-1.3); Blood Urea Nitrogen 14 mg/dL (9-20); Calcium 8.7 mg/dL (8.4-10.2); Carbon Dioxide 22 mmol/L (22-30); Chloride 101 mmol/L (98-107); Estimated CRCL calculation 105 ml/min; Estimated Glomerular Filt Rate > 60; Glucose 344 mg/dL (65-110); Lipase 268 U/L (23-300); Potassium 4.3 mmol/L (3.4-5.0); Sodium 132 mmol/L (137-145); Total Protein 8.1 g/dL (6.3-8.2)
[2025-09-23 13:28] LABS: Add Urine Microscopic? YES; Appearance Urine Clear (Clear); Glucose Urine UA 3+ mg/dL (Negative); Leukocyte Esterase Ur Negative LEU/UL (Negative); Nitrate Urine Negative (Negative); Specific Grav Ur > 1.045 (1.001-1.035)
[2025-09-23 14:29] VITALS: BP 178/115; PULSE 83; RESP 16; O2SAT 97
[2025-09-23] MEDS: MORPHINE SULFATE (*CRX) 4 MG/ML INJ IV PUSH (14:54)
[2025-09-23 15:05] VITALS: BP 165/94; O2SAT 95
--- NOTE | 2025-09-23 15:52 | ED.MALEGU ---
HPI - Male Genitourinary General Chief complaint: Urogenital-Male Stated complaint: Flank pain Time Seen by Provider: 09/23/25 11:20 History of Present Illness HPI Narrative: Patient is a 45-year-old male who presents ER with flank pain abdominal pain. Ongoing for couple days history of kidney stones. Reports he has been having frequent vomiting. No diarrhea. No urinary frequency urgency. He has some cramping in the bladder area however. No alleviating factors at home. Related Data Allergies Allergy/AdvReac Type Severity Reaction Status Date / Time No Known Allergies Allergy Mild Verified 04/16/20 01:44 Review of Systems Review of Systems: All systems reviewed & are unremarkable except as noted in HPI and below Constitutional: Constitutional: Reports no additional constitutional complaints Cardiovascular: Cardiovascular: Reports no additional cardiovascular complaints Respiratory: Respiratory: Reports no additional respiratory complaints Gastrointestinal: Gastrointestinal: Reports no additional gastrointestinal complaints Genitourinary: Genitourinary: Reports no additional male genitourinary complaints PMFSH Past Medical History Medical History (Updated 09/23/25 @ 15:54 by Kameron Jerome MD) Healthy adult Surgical History Surgical History (Updated 04/16/20 @ 02:02 by Kameron Jerome MD) No history of previous surgery Social History Social History (Updated 04/16/20 @ 02:02 by Kameron Jerome MD) Tobacco type: cigarettes Gender identity (if verbalized by the patient): Male Exam Narrative: GENERAL: Uncomfortable-appearing, well-nourished, and in no acute distress. HEAD: Normocephalic, atraumatic. ENT: Mucous membranes moist. CHEST: Clear to auscultation. No respiratory distress. HEART: Regular rate and rhythm. Normal peripheral pulses. ABDOMEN: Soft, nontender, nondistended. EXTREMITIES: Normal range of motion. No edema. SKIN: Warm, dry, no rash. NEURO: Alert and oriented x3. PSYCH: Normal mood and affect. Course Course Emergency Course: Hydrated with 2 L IV fluid. Given pain control and feeling improved. Discharge with antiemetics. Vital Signs Vital signs: Vital Signs Temperature 97.5 F L 09/23/25 10:50 Pulse Rate 98 09/23/25 10:50 Respiratory Rate 18 09/23/25 10:50 Blood Pressure 156/108 H 09/23/25 10:50 Pulse Oximetry 97 09/23/25 10:50 Oxygen Delivery Room Air 09/23/25 10:50 Temperature 97.5 F L 09/23/25 10:50 Pulse Rate 83 09/23/25 14:29 Respiratory Rate 16 09/23/25 14:29 Blood Pressure 165/94 H 09/23/25 15:05 Pulse Oximetry 95 09/23/25 15:05 Oxygen Delivery Room Air 09/23/25 10:50 MDM - Male Genitourinary Differential Diagnosis Differential diagnosis: Likely urinary tract infection, acute retention of urine and other (Kidney stone, diverticulitis) Lab Data Attestation: I reviewed the patient's lab results. 09/23/25 11:58 09/23/25 12:23 Labs: Lab Results 09/23/25 09/23/25 09/23/25 Range/Units 11:58 12:23 13:03 WBC 17.5 H (4.5-10.0) K/mm3 RBC 5.45 (4.6-6.20) M/mm3 Hgb 16.2 (14.0-18.0) g/dL Hct 47.3 (42.0-52.0) % MCV 86.8 (80-100) fl MCH 29.7 (26-34) pg MCHC 34.2 (32-36) g/dl RDW 13.2 (11.5-14.5) % Plt Count 269 (150-375) k/mm3 MPV 11.8 H (7.4-10.4) fl Immature Gran % (Auto) 0.8 H (0-0.5) % Neut % (Auto) 75.6 H (45.5-73.1) % Lymph % (Auto) 16.7 L (18.3-44.2) % [place] % (Auto) 5.3 (2.6-8.5) % Eos % (Auto) 1.0 (0-4.4) % Baso % (Auto) 0.6 (0.2-1.2) % Lymph # (Auto) 2.92 (0.9-3.2) K/mm3 [place] # (Auto) 0.9 H (0.1-0.6) K/mm3 Eos # (Auto) 0.2 (0-0.3) K/mm3 Baso # (Auto) 0.1 (0.0-0.1) K/mm3 Abs Immat Gran (auto) 0.14 H (0.00-0.031) K/mm3 Absolute Neuts (auto) 13.2 H (1.3-6.7) K/mm3 Absolute Nucleated RBC 0.000 (0.0-0.012) K/mm3 Nucleated RBC % 0.0 (0.0-0.2) % Sodium 132 L (137-145) mmol/L Potassium 4.3 (3.4-5.0) mmol/L Chloride 101 (98-107) mmol/L Carbon Dioxide 22 (22-30) mmol/L Anion Gap 9 (4-12) mmol/L BUN 14 (9-20) mg/dL Creatinine 0.73 (0.7-1.3) mg/dL Estim Creat Clear Calc 105 ml/min Estimated GFR > 60 (59 - ) Glucose 344 H (65-110) mg/dL Calcium 8.7 (8.4-10.2) mg/dL Total Bilirubin 0.7 (0.2-1.3) mg/dL AST 50 (17-59) U/L ALT 81 H (6-50) U/L Alkaline Phosphatase 214 H (38-126) U/L Total Protein 8.1 (6.3-8.2) g/dL Albumin 4.1 (3.5-5.1) g/dL Lipase 268 (23-300) U/L Urine Color Dark yellow (Yellow) Urine Appearance Clear (Clear) Urine pH 5.5 (5.0-9.0) Ur Specific [place] > 1.045 H (1.001-1.035) Urine Protein 2+ H (Negative) mg/dL Urine Glucose (UA) 3+ H (Negative) mg/dL Urine Ketones 2+ H (Negative) mg/dL Ur Blood (Man) Negative (Negative) Urine Nitrate Negative (Negative) Urine Bilirubin 1+ H (Negative) Urine Urobilinogen 0.2 (<2.0) mg/dL Leukocyte Esterase Rfl Negative (Negative) RODNEY/UL Urine RBC 0-2 (0-2) /hpf Urine WBC 0-5 (0-3) /hpf Ur Squamous Epith Cells Occasional (Few) /hpf Urine Bacteria None seen /hpf Urine Casts 11-20 Urine Mucus Present /lpf Imaging Data Radiologist's impression: ITS Impressions Abdomen/Pelvis CT 09/23/25 11:57 IMPRESSION: 1. Fatty infiltration of the liver. Discharge Plan Discharge Clinical Impression: Nausea & vomiting, Abdominal cramping Patient Disposition: Home Condition: Stable Instructions: Acute Nausea and Vomiting (ED), Abdominal Pain (ED) Additional Instructions: Return to the emergency department if you develop severe abdominal pain, severe nausea and vomiting to the point where you are unable to keep down fluids, if you develop chest pain or difficulty breathing, blood in your stool, dizziness or fainting, or if you develop any other new or concerning symptoms as these could be signs of more serious medical illness. Try to stay well hydrated. Patient Language: Gibraltarian Prescriptions: New ondansetron 4 mg tablet,disintegrating 4 mg PO Q6H PRN (Reason: nausea and vomiting) Qty: 10 0RF No Action amoxicillin-pot clavulanate [Augmentin] 875-125 mg tablet 1 tablet PO Q12H Qty: 20 0RF hydrocodone-acetaminophen 5-325 mg tablet 1 tablet PO Q6H PRN (Reason: pain) Qty: 10 0RF Follow-up/Referrals: Ankur Carrasco MD [Primary Care Provider, Family Practice] - 1 Week
== END 2025-09-23 16:05 | disposition home or self-care (01) ==
PROVIDERS: Emergency Provider Emergency Medicine; PCP Emergency Medicine
DX: R10.A0 Flank pain, unspecified side (principal); R11.2 Nausea with vomiting, unspecified; F17.210 Nicotine dependence, cigarettes, uncomplicated; Z87.442 Personal history of urinary calculi; K76.0 Fatty (change of) liver, not elsewhere classified
CPT/HCPCS: 36415; 74176; 80053; 81001; 83690; 85025; 96361; 96374; 96375; 99284; J1885; J2270; J7030